=== PATIENT | male | born 1990 | race Caucasian/White ===

== ENCOUNTER → 2020-12-01 11:07 | Outpatient (CLI) | payer OTHER, SELFPAY ==
--- NOTE | 2020-12-01 11:12 | DI.MRI.S_ITS ---
PROCEDURE: MR SHOULDER RT WO CON INDICATIONS: Other instability, unspecified shoulder TECHNIQUE: Noncontrast oblique coronal T2 fast spin echo with fat saturation, oblique sagittal T1 spin echo and T2 fast spin echo with fat saturation, axial T1 spin echo and T2 fast spin echo with fat saturation through the shoulder. COMPARISON: None. FINDINGS: Rotator cuff: Supraspinatus tendinopathy with low-grade bursal surface fraying as well as interstitial tearing at the junction of the footprint and critical zone. Infraspinatus tendinopathy also present with bursal surface fraying . Teres minor appears intact. Subscapularis tendon appears intact. No atrophy of the rotator cuff muscles although there is fatty infiltration of the supraspinatus and infraspinatus. Bones and bursae: No bone marrow contusions or fractures. Moderate acromioclavicular joint degeneration. Acromion demonstrates conventional anatomy, without an os acromiale. Mild subacromial-subdeltoid bursitis. Capsule and soft tissues: Labrum: Posterior labral tear is present. There are multiple associated paralabral cysts, for example measuring 7-8 mm on image 14/5. Biceps tendon: Long head of the biceps tendon intact. Rotator interval: Normal signal intensity. Coracohumeral ligament: Intact. IMPRESSION: Tendinopathy and bursal surface fraying of the rotator cuff as above. Mild subacromial-subdeltoid bursitis Posterior labral tear with associated paralabral cysts measuring up to 8 mm. Dictated by: Chuck Pradhan M.D. on 12/01/2020 at 12:54 Approved by: Chuck Pradhan M.D. on 12/01/2020 at 13:11
== END ==
PROVIDERS: PCP Student in an Organized Health Care Education/Training Program; Referring Provider Student in an Organized Health Care Education/Training Program; Visit Provider Student in an Organized Health Care Education/Training Program
DX: M25.311 Other instability, right shoulder (principal); M19.011 Primary osteoarthritis, right shoulder; M75.51 Bursitis of right shoulder; S43.491A Other sprain of right shoulder joint, initial encounter
CPT/HCPCS: 73221

== ENCOUNTER → 2022-08-30 15:11 | Outpatient (CLI) | payer OTHER, SELFPAY ==
--- NOTE | 2022-08-30 | DI.MRI.S_ITS ---
PROCEDURE: MR HEAD/BRAIN WO CON INDICATIONS: Tremor, unspecified TECHNIQUE: Noncontrast axial T1 spin echo, axial T2 fast spin echo, sagittal and axial FLAIR, coronal T2 fast spin echo, axial gradient echo, axial diffusion and ADC through the brain. COMPARISON: None. FINDINGS: Image quality: Excellent. CSF Spaces: Basal cisterns are patent. No extra-axial fluid collections. Ventricles are normal in size and shape. Cavum septum vergae. Brain: No intracranial masses or hemorrhage. Hopkins/white matter interface is normal. Brainstem appears normal. Diffusion-weighted images demonstrate no acute ischemic insult. No chronic ischemic insults. Normal intravascular flow voids are present. Skull and face: Calvarium has normal marrow signal. Orbits appear normal. Sinuses: Sinuses and mastoids are clear. IMPRESSION: 1. Negative evaluation of the brain. 2. No acute process. No recent infarct. Dictated by: Ra Dial M.D. on 08/30/2022 at 16:18 Transcribed by: YARELIS on 08/30/2022 at 16:19 Approved by: Ra Dial M.D. on 08/30/2022 at 16:49
== END ==
PROVIDERS: PCP Student in an Organized Health Care Education/Training Program; Referring Provider Student in an Organized Health Care Education/Training Program; Visit Provider Student in an Organized Health Care Education/Training Program
DX: R25.1 Tremor, unspecified (principal)
CPT/HCPCS: 70551

== ENCOUNTER → 2024-08-11 14:00 | Outpatient (CLI) | payer OTHER, SELFPAY ==
--- NOTE | 2024-08-11 14:02 | DI.RAD.S_ITS ---
PROCEDURE: XR LUMBAR SPINE MIN 4V INDICATIONS: BACK PAIN TECHNIQUE: 5 views of the lumbar spine were acquired, including bilateral oblique views. COMPARISON: None. FINDINGS: Bones: 5 nonrib-bearing vertebrae are present. There is normal bony alignment. No vertebral body compression fractures. No suspicious bony lesions. Mild degenerative endplate changes and osteophytosis. Mild facet arthropathy of the lower lumbar spine. Soft tissues: Overlying bowel gas pattern is normal. No suspicious soft tissue calcifications. Oblique images: No pars defects. IMPRESSION: Mild degenerative changes of the lumbar spine. No acute osseous abnormalities. Dictated by: Gaston Gunn M.D. on 08/11/2024 at 16:14 Approved by: Gaston Gunn M.D. on 08/11/2024 at 16:17
== END ==
PROVIDERS: PCP Student in an Organized Health Care Education/Training Program; Referring Provider Physical Medicine & Rehabilitation; Visit Provider Physical Medicine & Rehabilitation
DX: M47.816 Spondylosis without myelopathy or radiculopathy, lumbar region (principal); M54.9 Dorsalgia, unspecified
CPT/HCPCS: 72110; 99214

== ENCOUNTER → 2024-09-03 17:09 | Outpatient (CLI) | payer OTHER, SELFPAY ==
--- NOTE | 2024-09-03 17:10 | DI.MRI.S_ITS ---
PROCEDURE: MR LUMBAR SPINE WO CON INDICATIONS: T/L spine Right Sided Pain and Spasm TECHNIQUE: Noncontrast sagittal T1 spin echo and T2 fast echo, sagittal STIR, and T2 fast spin echo through the lumbar spine. In cases with scoliosis, additional coronal T2 fast spin echo may be performed. COMPARISON: [facility], CR, XR LUMBAR SPINE MIN 4V, 08/11/2024, 13:58. FINDINGS: Image quality: This examination is limited by involuntary motion artifact. Alignment and Curvature: There is normal bony alignment. Bone Marrow: Marrow is of normal overall signal. No acute vertebral body compression fractures. Spinal Cord: Conus medullaris terminates at the L1 level. Visualized cord demonstrates normal signal and size. Paraspinous Soft Tissues: No paravertebral masses. T12-L1: The disc height and disk signal are well-preserved. Mild to moderate disc bulge is seen. Moderate facet hypertrophy can be seen. No central canal narrowing is seen. L1-L2: The disc height and disk signal are well-preserved. Mild generalized disc bulge is seen. Moderate bilateral neural foraminal narrowing is seen. Mild central canal narrowing is seen. Moderate to severe central canal narrowing is seen. L2-L3: Mild loss of disc height is seen. Loss of disc signal is seen. Moderate generalized disc bulge is seen. There is a superimposed central disc protrusion. Mild facet joint hypertrophy is seen. There is at least moderate bilateral neural foraminal narrowing. L3-L4: Mild loss of disc height is seen. Loss of disc signal is seen. Moderate generalized disc bulge is seen. There is a superimposed central disc protrusion. There is a focal annular fissure seen posteriorly. Moderate facet joint hypertrophy is seen. There is at least moderate bilateral neural foraminal narrowing. Moderate to severe central canal narrowing is seen. L4-L5: Mild loss of disc height is seen. Loss of disc signal is seen. Mild to moderate disc bulge is seen. There is a superimposed central disc protrusion. There is a focal annular fissure seen posteriorly. Moderate facet joint hypertrophy is seen. There is at least moderate bilateral neural foraminal narrowing. Moderate central canal narrowing is seen. L5-S1: Mild loss of disc height is seen. Loss of disc signal is seen. Mild to moderate disc bulge is seen, which is eccentric to the right, with a right subarticular/foraminal disc protrusion. Mild to moderate facet hypertrophy is seen. There is at least moderate left-sided and moderate to severe right-sided neural foraminal narrowing. There is a degree of compression seen upon the exiting nerve roots. Moderate central canal narrowing is seen. IMPRESSION: Multiple levels of significant lumbar spine degenerative change can be seen. Dictated by: Tian Shay M.D. on 09/03/2024 at 17:34 Approved by: Tian Shay M.D. on 09/03/2024 at 17:38
== END ==
PROVIDERS: Referring Provider Physical Medicine & Rehabilitation; Visit Provider Physical Medicine & Rehabilitation
DX: M51.26 Other intervertebral disc displacement, lumbar region (principal); M51.24 Other intervertebral disc displacement, thoracic region; M47.816 Spondylosis without myelopathy or radiculopathy, lumbar region; M47.817 Spondylosis without myelopathy or radiculopathy, lumbosacral region
CPT/HCPCS: 72148

== ENCOUNTER → 2024-09-15 15:13 | Outpatient (CLI) | payer OTHER, SELFPAY ==
--- NOTE | 2024-09-15 15:15 | DI.MRI.S_ITS ---
PROCEDURE: MR SHOULDER RT WO CON INDICATIONS: pain in right shoulder TECHNIQUE: Noncontrast oblique coronal T2 fast spin echo with fat saturation, oblique sagittal T1 spin echo and T2 fast spin echo with fat saturation, axial T1 spin echo and T2 fast spin echo with fat saturation through the shoulder. COMPARISON: [facility], MR, MR SHOULDER RT WO CON, 12/01/2020, 11:23. FINDINGS: Image quality: Somewhat limited evaluation given patient motion. Rotator cuff: There is low-grade, interstitial tear at the footprint of the junction of the supraspinatus and infraspinatus (09:14). Mild tendinosis of the infraspinatus, without tear. The teres minor is unremarkable. The subscapularis is unremarkable. No muscle edema or fatty atrophy. Bones and bursae: Mild degenerative changes of the joint. Acromion. No os acromiale. Trace subacromial/subdeltoid bursitis. No acute fracture. No focal chondral defect of the glenohumeral articulation. Mild subchondral cystic changes of the posterior glenoid, reactive. Capsule and soft tissues: Posterior labral tear, extending inferiorly to the posterior inferior labrum. 1.0 cm paralabral cyst about the posterior labrum. The extra-articular biceps tendon and the intra-articular biceps tendon is unremarkable. Trace glenohumeral effusion. Mild subcoracoid bursitis. No intra-articular body. IMPRESSION: 1. Low-grade tear at the junction of the supraspinatus and infraspinatus. 2. Posterior labral tear, extending inferiorly to the posterior inferior labrum. Associated reactive subchondral cystic changes of the posterior glenoid, progressed in comparison to prior exam. 1.0 cm paralabral cyst about the posterior labrum, grossly unchanged. Dictated by: Julissa Christianson M.D. on 09/16/2024 at 9:15 Approved by: Julissa Christianson M.D. on 09/16/2024 at 9:25
--- NOTE | 2024-09-15 15:16 | DI.CT.S_ITS ---
PROCEDURE: CT SHOULDER RIGHT WITHOUT CON INDICATIONS: pain in right shoulder TECHNIQUE: Noncontrast 0.75 mm thick sections acquired from the acromioclavicular joint to the inferior scapula, with coronal and sagittal reformatting. COMPARISON: [facility], MR, MR SHOULDER RT WO CON, 09/15/2024, 16:16. FINDINGS: Image quality: Excellent. Bones: No acute fracture or dislocation. Status post prior inferior labral repair (3169). Joints: Minimal acromioclavicular osteoarthritis. The glenohumeral joint is preserved, although there is mild posterior decentering of the humeral head relative to the glenoid (2/69). Muscles: Overall muscle bulk is preserved. Tendons: The long head of the biceps tendon contour is preserved within the bicipital groove. Vessels: No aneurysmal dilatation of the visualized right upper extremity arterial vasculature. Lymph nodes: No right axillary lymphadenopathy. Other soft tissues: Bilateral hypodense thyroid nodules measuring between 1.5-2.3 cm in maximal dimension are present, along with internal calcifications in the right nodule (5/44). Visualized right lung parenchyma within normal limits. IMPRESSION: 1. Mild posterior decentering of the humeral head relative to the glenoid. 2. Minimal acromioclavicular osteoarthritis. 3. Bilateral thyroid nodules, including internal calcifications in the right nodule. Nonemergent thyroid ultrasound recommended for evaluation. Dictated by: Ayush Zeng M.D. on 09/16/2024 at 9:33 Approved by: Ayush Zeng M.D. on 09/16/2024 at 9:46
== END ==
PROVIDERS: Referring Provider Student in an Organized Health Care Education/Training Program; Visit Provider Student in an Organized Health Care Education/Training Program
DX: M75.111 Incomplete rotator cuff tear or rupture of right shoulder, not specified as traumatic (principal); S43.491A Other sprain of right shoulder joint, initial encounter; M75.51 Bursitis of right shoulder; M19.011 Primary osteoarthritis, right shoulder; E04.1 Nontoxic single thyroid nodule; X58.XXXA Exposure to other specified factors, initial encounter
CPT/HCPCS: 73200; 73221

== ENCOUNTER 2024-11-04 12:08 | Outpatient (CLI) | payer OTHER, SELFPAY ==
[2024-11-04] VITALS (9 sets, daily range): BP systolic 124–152; BP diastolic 85–100; PULSE 60–73; RESP 16–18; O2SAT 98–100
[2024-11-04] MEDS: MIDAZOLAM 2 MG/2 ML VIAL IV (13:31)
[2024-11-04] MEDS: DEXAMETHASONE 10 MG/ML VIAL 30 MG INJ (13:40)
[2024-11-04] MEDS: iopamidoL 15 ML VIAL 3 ML INJ (13:41)
[2024-11-04] MEDS: BUPIVACAINE 0.25% (PF) VIAL 2 ML INJ (13:41)
--- NOTE | 2024-11-04 13:55 | P.PCN_ITS ---
Date/Time/Diagnoses Date of procedure: 11/04/24 Time of procedure: 13:55 Pre-procedure diagnosis: 1. FORAMINAL STENOSIS WITH LE SYMPTOMS Post-procedure diagnosis: same Procedure Notes Procedure: 1. FLUOROSCOPICALLY GUIDED CONTRAST CONTROLLED TRANSFORAMINAL EPIDURAL STEROID INJECTION - RIGHT T8/9 TFESI Indications: Srinath is referred for treatment of Foraminal Stenosis with Right thoracic Symptoms Physician: Yazan Delgado Total Fluoroscopy time (seconds): 12 Total sedation minutes: 19 Complications: none Procedure in detail & Post-procedure care: FINDINGS Foraminal Nerve Root Compression secondary to disc disease and facet hypertrophy DESCRIPTION OF PROCEDURE Following review of allergy and review of potential side effects and complications, including, but not necessarily limited to, infection, allergic reaction, local tissue breakdown, stroke, temporary or permanent nerve injury, paralysis, and possible , the patient indicated that the patient understood and agreed to proceed. An informed consent document was signed by the patient, witnessed by a nurse, and placed in the patient's chart. Additionally, other treatment options including medications, modalities, and physical therapy were reviewed with the patient. After review of previous anaesthesic history and IV conscious sedation the patient was deemed safe to proceed with today?s procedure with IV conscious sedation as ASA class II designation. Safety time-out was performed to confirm patient ID, procedure to be performed and site of procedure. IV sedation was accomplished with a combination of 4mg of Versed was administered by the RN after DO order, titrated to patient comfort during the course of the procedure while the patient remained responsive to all verbal commands In the prone position following sterile prep and drape of the lumbar region, the right T8-9 posterior neuroforamen was identified fluoroscopically. The skin was anesthetized via a 25-gauge 1.5-inch needle with 1% lidocaine solution. At this point, a 25-gauge 3.5-inch spinal needle was atraumatically introduced and advanced under fluoroscopic guidance through the posterior right T8-9 neuroforamen to approximately the anterior aspect of the canal. Depth was confirmed on lateral view. Following negative aspiration, injection of approximately 1.5cc of Isovue 200 under live fluoroscopy in the AP view confirmed excellent flow along the nerve root, into the epidural space without vascular or intrathecal uptake observed Radiological data, including multiple fluoroscopic views reveal the needle placement in the right T8/9 posterior neuroforamen. Subsequent views show flow of contrast material flowing superiorly and inferiorly along the nerve root confirming epidural flow. Subsequently, a test dose of 1.5cc of 1% lidocaine solution was administered and patient was observed for signs or symptoms of complications, including abdominal pain, shortness of breath, bilateral upper or lower extremity weakness, nausea and vomiting, prior to steroid injection. At this point, a total of 3cc or 30mg of dexamethasone was injected without incident. The procedure tolerated the procedure well without signs or symptoms of complications prior to transfer to the recovery area continued monitoring without incident. The patient was then transferred to the recovery area where they were observed for an appropriate time after the injection. The patient reported a VAS score of 8 prior to the procedure and a post- procedure VAS of 1. POST OP INSTRUCTIONS The patient was provided a Pain Log to continue to record their response to the target-specific procedure prior to follow-up visit with their referring physician. Additionally, specific post-injection care instructions and a contact number to our office were provided if concerns arise regarding possible complications associated with the procedure are suspected.
== END 2024-11-04 14:15 | disposition home or self-care (01) ==
LOC: RAD 12:08
PROVIDERS: Referring Provider Physical Medicine & Rehabilitation; Visit Provider Physical Medicine & Rehabilitation
DX: M51.14 Intervertebral disc disorders with radiculopathy, thoracic region (principal); M51.24 Other intervertebral disc displacement, thoracic region
CPT/HCPCS: 64479; 99152; J1100; J2250; J3490